=== PATIENT | male | born 1950 | race Caucasian/White ===

== ENCOUNTER 2019-04-08 15:22 | Inpatient (IN) | payer BC, MEDICARE, OTHER ==
[~2019-04-08] VITALS: Ht 172.7 cm; Wt 82.6 kg
[~2019-04-08 15:22] MED LIST: AMLODIPINE-BEN1 EAC5 PO; ASPIRIN EC81 MG PO; CELEBREX200 MG PO; CRESTOR20 MG PO; METFORMIN HCL500 MG PO; NORCO 7.5-3251 EACH PO; OMEPRAZOLE40 MG PO; PERCOCET 2.5-31 EACH PO; PLAVIX75 MG PO; TRILIPIX135 MG PO
--- OUTSIDE RECORDS SUMMARY | 2019-04-08 15:26 | XMS REPORT ---
Author Author [facility] Address Unknown Phone Unavailable Care Team Providers Care Bellperson Name Role Phone Unavailable Unavailable Payers Payer Name Policy Type Policy Number Effective Date Expiration Date Problems This patient has no known problems. Allergies, Adverse Reactions, Alerts Allergy Name Allergy Type Status Severity Reaction(s) Onset Date Inactive Date Treating Clinician Comments Penicillins DA Active MO 2015-01-25 00:00:00 naproxen DA Active MO 2015-01-25 00:00:00 tetracycline DA Active MO 2015-01-25 00:00:00 Medications This patient has no known medications. Results Test Description Test Time Test Comments Text Results Atomic Results Result Comments - CT LD LUNG CA SCREENING 2018-12-19 15:35:00 Name: ASHLI DANIELLE JR [facility] : 1950 Age/S: 68 / M [address] [facility] Unit #: [id number] Loc: [place] [address] Phys: Joseph Fong DO Acct: [id number] Dis Date: Status: REG CLI PHONE #: [phone] Exam Date: 12/19/2018 1422 FAX #: [phone] Reason: SMOKER EXAMS: CPT CODE: [id number] CT LD LUNG CA SCREENING G0297 EXAM: Screening CT chest without contrast (low dose) LOCATION: [facility] INDICATION: Lung cancer screening TECHNIQUE: Axial 0.63 mm images of the chest were obtained using low-dose CT technique, with sagittal and coronal reformats. COMPARISON: 02/12/2015 DISCUSSION: RISK FACTORS: Age: 68 years Smokin pack 55 years Currently smoking: Yes Last smoked: Current smoker History of cancer: None NODULES: None Additional findings: Lungs: Minimal atelectasis of the left base. Previously seen groundglass opacity of the lungs has resolved. Previously seen pleural fusions also resolved Mediastinum: Mild calcification of the coronary artery (LAD, circumflex, and RCA) Lymph nodes: Nonspecific subcentimeter nodes in the mediastinum Osseous structures/soft tissues: Unremarkable Upper abdomen: Unremarkable IMPRESSION: Lung-Rads Category 1 RECOMMENDATION: (Based on Lung-Rads category) FOR INTERNAL CODING PURPOSES ONLY RESULT CODE: L1 FOLLOW UP: L12 at 9105 Reported and signed by: Anjum Fry M.D. PAGE 1 Signed Report (CONTINUED) Name: ASHLI DANIELLE JR [facility] : 1950 Age/S: 68 / M [address] [facility] Unit #: [id number] Loc: [facility] [place] [address] Phys: Joseph Fong DO Acct: [id number] Dis Date: Status: REG CLI PHONE #: [phone] Exam Date: 12/19/2018 1422 FAX #: [phone] Reason: SMOKER EXAMS: CPT CODE: [id number] CT LD LUNG CA SCREENING G0297 <Continued> CC: Joseph Fong Technologist:Nathalie James RT(R),CT CTDI: DLP: Trnscb Date/Time: 12/19/2018 (1535) [email or web address] Orig Print D/T: S: 12/19/2018 (2444) PAGE 2 Signed Report
[2019-04-08] MEDS ORDERED: HYDROCODONE/APAP 5MG-325MG TAB PO ONE (16:30)
--- NOTE | 2019-04-08 18:28 | Diagnostic Imaging Report ---
HIP RIGHT 2-3 VW (+/- PELVIS) - 3 views HISTORY: Fall, rule out fracture COMPARISON: None available. FINDINGS: Bones: No acute displaced fracture. Osseous alignment is within normal limits. Joints: Degenerative changes noted. Soft tissues: The soft tissues appear unremarkable. IMPRESSION: No acute fracture. Signed by: Jerome Bazzi MD on 04/08/2019 6:25 PM
--- NOTE | 2019-04-08 18:45 | NUR ---
AIDAN Barba AT BEDSIDE UPDATING PATIENT ON NEED FOR ADMISSION AND MRI ON WEDNESDAY
--- NOTE | 2019-04-08 19:00 | Diagnostic Imaging Report ---
EXAMINATION: CHEST SINGLE (PORTABLE) INDICATION: FALL COMPARISON: None FINDINGS: AP view TUBES and LINES: None. LUNGS: Lungs are well inflated. There is no evidence of pneumonia or pulmonary edema. PLEURA: No pleural effusion or pneumothorax. HEART AND MEDIASTINUM: The cardiomediastinal silhouette is unremarkable. BONES AND SOFT TISSUES: No acute osseous lesion. Soft tissues are unremarkable. UPPER ABDOMEN: No free air under the diaphragm. IMPRESSION: No displaced fracture noted. Signed by: Jerome Bazzi MD on 04/08/2019 6:57 PM
[2019-04-08 19:11] LABS: BASOPHILS # (AUTO) 0.1 (0.0-0.1); BASOPHILS % 0.4 % (0.0-1.0); EOSINOPHILS # (AUTO) 0.3 (0.0-0.4); EOSINOPHILS % 2.3 % (0.0-6.0); HEMATOCRIT 49.4 % (38.2-49.6); HEMOGLOBIN 17.5 g/dL (14.0-18.0); LYMPHOCYTES # (AUTO) 1.5 (1.0-3.2); LYMPHOCYTES % 12.7 % (18.0-39.1); MEAN CORPUSCULAR HEMOGLOBIN 32.2 pg (28-32); MEAN CORPUSCULAR HGB CONC 35.4 g/dL (31-35); MONOCYTES % 7.9 % (4.4-11.3); NEUTROPHILS # (AUTO) 9.1 (2.1-6.9); NEUTROPHILS % 76.2 % (38.7-80.0); PLATELET COUNT 133 x10e3/uL (140-360); RED BLOOD COUNT 5.43 x10e6/uL (4.3-5.7); RED CELL DISTRIBUTION WIDTH 12.8 % (11.7-14.4)
[2019-04-08 19:23] LABS: INR 0.93
[2019-04-08 19:24] LABS: PARTIAL THROMBOPLASTIN TIME 31.2 seconds (23.8-35.5)
[2019-04-08] MEDS ORDERED: DEXTROSE 50% SYRINGE 50 ML IV PRN (19:30)
[2019-04-08] MEDS ORDERED: ONDANSETRON HCL INJ 2MG/ML 2ML 2 MG/ML VIAL IV PRN (19:30)
[2019-04-08] MEDS ORDERED: SODIUM CHLORIDE 0.9% 1000ML 1,000 ML IV ONE (19:30)
[2019-04-08 19:32] LABS: ALANINE AMINOTRANSFERASE 23 IU/L (0-55); ALBUMIN 3.9 g/dL (3.5-5.0); ALBUMIN/GLOBULIN RATIO 1.4 (0.8-2.0); ALKALINE PHOSPHATASE 60 IU/L (40-150); ANION GAP 12.2 mmol/L (8-16); BLOOD UREA NITROGEN 16 mg/dL (7-26); BUN/CREATININE RATIO 23 (6-25); CALCIUM 9.5 mg/dL (8.4-10.2); CARBON DIOXIDE 29 mmol/L (22-29); CHLORIDE 103 mmol/L (98-107); CREATINE KINASE 73 IU/L (30-200); CREATININE, SERUM 0.71 mg/dL (0.72-1.25); EST GLOMERULAR FILTRATION RATE > 60 ML/MIN (60-); GLUCOSE 83 mg/dL (74-118); MAGNESIUM 1.7 MG/DL (1.3-2.1); POTASSIUM 4.2 mmol/L (3.5-5.1); SODIUM 140 mmol/L (136-145)
[2019-04-08] MEDS: ALBUTEROL SULF 0.083% NEB SOLN 3 ML NEB NEB PRN (19:40)
[2019-04-08] MEDS ORDERED: ENOXAPARIN SOD INJ 40 MG/0.4 ML SYR SC ONE (20:00)
[2019-04-08 20:15] VITALS: BP 168/85
[2019-04-08] MEDS ORDERED: MORPHINE SULFATE 2 MG/ML SYR 1ML IV STA (20:51)
--- NOTE | 2019-04-08 20:51 | NUR ---
Spoke to Rhonda Alvarez NP regarding patient pain med and home meds. New orders received. See EMR for list of orders.
[2019-04-08] MEDS ORDERED: HYDROXYCHLOROQ200 MG PO (20:55)
[2019-04-08] MEDS ORDERED: METOPROLOL TART25 MG PO (20:55)
[2019-04-08] MEDS ORDERED: VITAMIN C1000 MG PO (20:58)
[2019-04-08] MEDS ORDERED: TRAZODONE HCL50 MG PO (20:58)
[2019-04-08] MEDS ORDERED: SIMVASTATIN40 MG PO (20:58)
[2019-04-08] MEDS: INSULIN LISPRO 100 UNIT/1 ML 3ML VIAL SQ SCH (21:00)
[2019-04-08 21:07] VITALS: BP 168/85
--- NOTE | 2019-04-08 22:00 | NUR ---
Informed Rhonda ZAPIEN that morphine is helping the pain. New order received for morphine 2mg iv q4h prn.
[2019-04-08] MEDS ORDERED: COMBIVENT RESPIM4 GM IH (22:02)
[2019-04-08] MEDS ORDERED: MAGNESIUM OXID400 MG PO (22:02)
[2019-04-08] MEDS ORDERED: METOPROLOL TARTRATE 25 MG TAB PO SCH (22:15)
[2019-04-08] MEDS ORDERED: IPRATROPIUM/ALBUTEROL SULFATE 4 GM INH INH PRN (22:15)
[2019-04-08] MEDS ORDERED: BENAZEPRIL PO (22:17)
[2019-04-08] MEDS ORDERED: AMLODIPIN PO (22:17)
--- NOTE | 2019-04-08 23:01 | NUR ---
Call received from radiologist Guido Zabala regarding CT scan result of non displaced femoral neck fracture. Notified Rhonda Alvarez NP at this time. New order received to consult Dr. My Alvarez and to call him once full CT scan report is available.
--- NOTE | 2019-04-08 23:14 | Diagnostic Imaging Report ---
EXAM: CT Pelvis WITHOUT contrast CT Right hip without contrast INDICATION: Trauma, pain COMPARISON: Right hip radiograph 04/08/2019. TECHNIQUE: Pelvis were scanned utilizing a multidetector helical scanner from the iliac crest to the pubic symphysis without administration of IV contrast. Coronal and sagittal reformations were obtained. Routine protocol was performed. IV CONTRAST: None ORAL CONTRAST: None COMPLICATIONS: None RADIATION DOSE: Total DLP: 302 mGy*cm Estimated effective dose: (DLP x 0.015 x size factor) mSv CTDIvol has been reviewed. It is below the limits set by the Radiation Protocol Committee (RPC). Dose modulation, iterative reconstruction, and/or weight based adjustment of the mA/kV was utilized to reduce the radiation dose to as low as reasonably achievable. FINDINGS: LINES and TUBES: None. Partially visualized 2.8 cm right renal cyst. GI TRACT: No abnormal distention, wall thickening, or evidence of bowel obstruction. Moderate colonic stool burden. Colonic diverticuli without diverticulitis. Appendix is normal. PELVIC ORGANS/BLADDER: Unremarkable. LYMPH NODES: No lymphadenopathy. VESSELS: There is mild atherosclerotic disease in the aorta and major arterial branches. PERITONEUM / RETROPERITONEUM: No free air or fluid. BONES/joints: Irregular curvilinear sclerosis to the right femoral neck where there is a subtle cortical step-off along the lateral aspect of the right femoral cervical neck (series 501 image 29, series 104 image 50. Small right hip joint effusion (series 3 image 82). There is L5-S1 laminectomies and intact fixation hardware. Degenerative changes in the spine and hips. SOFT TISSUES: Subcutaneous edema/contusion overlying the right greater trochanter. IMPRESSION: 1. Findings compatible with nondisplaced right femoral neck transcervical/subcapital fracture. 2. Subcutaneous edema/contusion overlying the right greater trochanter. 3. Colonic diverticulosis without diverticulitis. 4. Moderate colonic stool burden, correlate for constipation. Findings discussed with patient's nurse Mr. Dueñas at 10:50 PM on 04/08/[address] Zabala via telephone. Signed by: Freedom Zabala DO on 04/08/2019 11:11 PM
[2019-04-08] MEDS: SIMVASTATIN 40 MG TAB PO SCH (23:30)
[2019-04-08] MEDS: HYDROXYCHLOROQUINE SULFATE 200 MG TAB PO SCH (23:30)
[2019-04-08] MEDS: TRAZODONE HCL 50 MG TAB PO SCH (23:30)
--- NOTE | 2019-04-08 23:52 | NUR ---
Spoke to Dr. My Alvarez at this time regarding consult and made him aware of the CT result. No new orders. said he will see the patient tomorrow.
[2019-04-09] VITALS (9 sets, daily range): BP systolic 113–158; BP diastolic 59–86
[2019-04-09] MEDS: MORPHINE SULFATE 2 MG/ML SYR 1ML IV PRN ×5 (04:23→21:35)
[2019-04-09] MEDS: ALBUTEROL SULF 0.083% NEB SOLN 3 ML NEB NEB PRN (04:42)
[2019-04-09 05:34] LABS: BASOPHILS # (AUTO) 0.1 (0.0-0.1); BASOPHILS % 0.8 % (0.0-1.0); EOSINOPHILS # (AUTO) 0.4 (0.0-0.4); EOSINOPHILS % 4.7 % (0.0-6.0); HEMATOCRIT 46.1 % (38.2-49.6); HEMOGLOBIN 15.9 g/dL (14.0-18.0); LYMPHOCYTES # (AUTO) 1.4 (1.0-3.2); LYMPHOCYTES % 15.7 % (18.0-39.1); MEAN CORPUSCULAR HGB CONC 34.5 g/dL (31-35); MEAN CORPUSCULAR VOLUME 92.8 fL (81-99); MONOCYTES # (AUTO) 0.9 (0.2-0.8); MONOCYTES % 9.5 % (4.4-11.3); NEUTROPHILS # (AUTO) 6.3 (2.1-6.9); NEUTROPHILS % 68.8 % (38.7-80.0); PLATELET COUNT 134 x10e3/uL (140-360); RED BLOOD COUNT 4.97 x10e6/uL (4.3-5.7); RED CELL DISTRIBUTION WIDTH 12.8 % (11.7-14.4)
[2019-04-09] MEDS: INSULIN LISPRO 100 UNIT/1 ML 3ML VIAL SQ SCH ×4 (07:30→20:38)
[2019-04-09] MEDS: METFORMIN HCL 500 MG TAB PO SCH ×2 (08:48→17:12)
[2019-04-09] MEDS: METOPROLOL TARTRATE 25 MG TAB PO SCH ×2 (08:49→22:30)
[2019-04-09] MEDS: AMLODIPINE BESYLATE 10 MG TAB PO SCH (08:49)
[2019-04-09] MEDS: ASCORBIC ACID 500 MG TAB PO SCH ×2 (08:49→17:12)
[2019-04-09] MEDS: PANTOPRAZOLE SOD 40 MG TABEC PO SCH (08:49)
[2019-04-09] MEDS: BENAZEPRIL HCL 10 MG TAB PO SCH (08:49)
[2019-04-09] MEDS ORDERED: BENAZEPRIL PO SCH (09:00)
[2019-04-09] MEDS ORDERED: AMLODIPINE PO SCH (09:00)
[2019-04-09 09:02] LABS: ALANINE AMINOTRANSFERASE 17 IU/L (0-55); ALBUMIN 3.3 g/dL (3.5-5.0); ALBUMIN/GLOBULIN RATIO 1.3 (0.8-2.0); ALKALINE PHOSPHATASE 48 IU/L (40-150); ANION GAP 11.9 mmol/L (8-16); BLOOD UREA NITROGEN 15 mg/dL (7-26); BUN/CREATININE RATIO 20 (6-25); CARBON DIOXIDE 29 mmol/L (22-29); CHLORIDE 103 mmol/L (98-107); CREATININE, SERUM 0.74 mg/dL (0.72-1.25); EST GLOMERULAR FILTRATION RATE > 60 ML/MIN (60-); GLUCOSE 138 mg/dL (74-118); POTASSIUM 3.9 mmol/L (3.5-5.1); SODIUM 140 mmol/L (136-145)
[2019-04-09 09:09] LABS: CREATINE KINASE MB 1.5 ng/mL (0-5.0)
[2019-04-09 13:16] LABS: CREATINE KINASE MB 1.6 ng/mL (0-5.0)
[2019-04-09] MEDS: ALBUTEROL/IPRATROPIUM 3 ML NEB NEB PRN (15:15)
[2019-04-09] MEDS ORDERED: ENOXAPARIN SOD INJ 40 MG/0.4 ML SYR SC SCH (17:00)
--- NOTE | 2019-04-09 17:25 | NUR ---
Spoke with MD Wrihgt (Ortho), stated he will be in to see pt this evening.
[2019-04-09] MEDS ORDERED: HEPARIN SOD (PORCINE) 5,000 UNIT/ML VIAL SC ONE (19:00)
[2019-04-09 19:26] LABS: BASOPHILS # (AUTO) 0.1 (0.0-0.1); BASOPHILS % 0.6 % (0.0-1.0); EOSINOPHILS # (AUTO) 0.5 (0.0-0.4); EOSINOPHILS % 4.3 % (0.0-6.0); HEMATOCRIT 47.6 % (38.2-49.6); HEMOGLOBIN 15.8 g/dL (14.0-18.0); LYMPHOCYTES # (AUTO) 1.6 (1.0-3.2); MEAN CORPUSCULAR HEMOGLOBIN 31.5 pg (28-32); MEAN CORPUSCULAR HGB CONC 33.2 g/dL (31-35); MONOCYTES % 8.9 % (4.4-11.3); NEUTROPHILS # (AUTO) 7.6 (2.1-6.9); NEUTROPHILS % 70.6 % (38.7-80.0); PLATELET COUNT 124 x10e3/uL (140-360); RED BLOOD COUNT 5.01 x10e6/uL (4.3-5.7)
[2019-04-09 19:38] LABS: INR 0.9; PROTHROMBIN TIME 12.6 seconds (11.9-14.5)
[2019-04-09 19:39] LABS: PARTIAL THROMBOPLASTIN TIME 33.7 seconds (23.8-35.5)
[2019-04-09 19:44] LABS: BLOOD UREA NITROGEN 18 mg/dL (7-26); BUN/CREATININE RATIO 23 (6-25); CALCIUM 8.8 mg/dL (8.4-10.2); CARBON DIOXIDE 26 mmol/L (22-29); CHLORIDE 103 mmol/L (98-107); CREATININE, SERUM 0.78 mg/dL (0.72-1.25); EST GLOMERULAR FILTRATION RATE > 60 ML/MIN (60-); GLUCOSE 119 mg/dL (74-118); SODIUM 139 mmol/L (136-145)
--- NOTE | 2019-04-09 21:26 | NUR ---
ORTHOPEDIC CONSULTATION 68 year old community ambulating male without assistive device presents to the ED after a mechanical fall with complaints of right hip pain and right upper arm pain. Denies numbness, paresthesias or loss of distal motor function. Pain localized. PMdHx: HTN, DM, ID, HLD SurgHx: PCI, Right Ankle Sx, Spine Sx Allergies: Penicillin, Naproxen, Tetracycline SocHx: Heavy Tobacco, Negative EtOH, Negative Drugs FamHx: Non-contributory VS T 99.6 HR 63 RR 18 BP 117/80 O2 94% Right Lower Leg - no open lesions or sores, no gross deformity TTP of greater trochanter Pain with PROM Unable to straight leg raise Pain with log roll and heel strike Motor: + EHL, FHL, TA, G/S Sensation grossly intact to light touch Pulses + DP, Post tib Compartments soft Negative calf tenderness Right Upper Extremity: no open lesions or sores TTP of triceps Able to flex, extend, supinate and pronate against resistance Pain with resisted tricep extension Motor: + AIN, PIN, Radial, Median, Ulnar Sensation grossly intact to light touch Pulses + Radial, good capillary refill Compartments soft CT: Non-displaced right femoral neck fracture Xrays: Valgus impacted femoral neck fracture 68 year old Male with Valgus Impacted Right Femoral Neck Fracture Plan for Right Hip Closed Reduction, Percutaneous Pinning NPO except meds after midnight IVF while NPO Hold chemo DVT prophylaxis after midnight Bedrest Follow up labs, EKG, Chest Xrays and Right Humerus Xray Analgesics PRN DO [facility]
--- NOTE | 2019-04-09 22:06 | Diagnostic Imaging Report ---
X-ray right humerus 2 views HISTORY: Pain. COMPARISON: None available. FINDINGS: Bones: No acute displaced fracture. Osseous alignment is within normal limits. Joints: Degenerative changes in the shoulder and elbow. Soft tissues: The soft tissues appear unremarkable. IMPRESSION: No acute radiographic abnormality. Degenerative changes in the shoulder and elbow. Signed by: Freedom Zabala DO on 04/09/2019 10:03 PM
[2019-04-09] MEDS: SIMVASTATIN 40 MG TAB PO SCH (22:30)
[2019-04-09] MEDS: HYDROXYCHLOROQUINE SULFATE 200 MG TAB PO SCH (22:30)
[2019-04-09] MEDS: TRAZODONE HCL 50 MG TAB PO SCH (22:30)
[2019-04-10] VITALS (8 sets, daily range): BP systolic 97–141; BP diastolic 58–74
[2019-04-10] MEDS: MORPHINE SULFATE 2 MG/ML SYR 1ML IV PRN ×4 (01:35→21:15)
[2019-04-10 06:15] LABS: BASOPHILS # (AUTO) 0.1 (0.0-0.1); BASOPHILS % 0.7 % (0.0-1.0); EOSINOPHILS # (AUTO) 0.5 (0.0-0.4); EOSINOPHILS % 4.9 % (0.0-6.0); HEMOGLOBIN 15.3 g/dL (14.0-18.0); LYMPHOCYTES # (AUTO) 1.5 (1.0-3.2); LYMPHOCYTES % 16.3 % (18.0-39.1); MEAN CORPUSCULAR VOLUME 94.1 fL (81-99); MONOCYTES % 10.2 % (4.4-11.3); NEUTROPHILS # (AUTO) 6.3 (2.1-6.9); NEUTROPHILS % 67.3 % (38.7-80.0); PLATELET COUNT 116 x10e3/uL (140-360); RED BLOOD COUNT 4.78 x10e6/uL (4.3-5.7); RED CELL DISTRIBUTION WIDTH 12.9 % (11.7-14.4)
[2019-04-10 06:52] LABS: BLOOD UREA NITROGEN 18 mg/dL (7-26); BUN/CREATININE RATIO 24 (6-25); CALCIUM 8.8 mg/dL (8.4-10.2); CHLORIDE 103 mmol/L (98-107); CREATININE, SERUM 0.75 mg/dL (0.72-1.25); EST GLOMERULAR FILTRATION RATE > 60 ML/MIN (60-); GLUCOSE 82 mg/dL (74-118); POTASSIUM 4.3 mmol/L (3.5-5.1); SODIUM 139 mmol/L (136-145)
--- NOTE | 2019-04-10 07:00 | NUR ---
RECEIVED PATIENT AWAKE RESTING IN BED NO S/S OF DISTRESS. BED LOW, WHEELS LOCKED, SIDE RAILS X2. CALL LIGHT IN REACH WILL CONTINUE TO MONITOR PATIENT.
[2019-04-10] MEDS ORDERED: ACETAMINOPHEN 325 MG TAB PO PRN (07:15)
[2019-04-10] MEDS ORDERED: HYDRALAZINE HCL 20 MG/ML VIAL IV PRN (07:15)
[2019-04-10] MEDS ORDERED: MELATONIN 5 MG TABLET PO PRN (07:15)
[2019-04-10] MEDS: INSULIN LISPRO 100 UNIT/1 ML 3ML VIAL SQ SCH ×4 (07:30→21:00)
[2019-04-10] MEDS: METFORMIN HCL 500 MG TAB PO SCH ×2 (07:36→17:34)
--- NOTE | 2019-04-10 07:57 | NUR ---
PATIENT LEFT TO OR AT THIS TIME IN STABLE CONDITION.
[2019-04-10 07:58] LABS: ANION GAP 14.3 mmol/L (8-16); CARBON DIOXIDE 28 mmol/L (22-29)
[2019-04-10] MEDS: BENAZEPRIL HCL 10 MG TAB PO SCH (08:00)
[2019-04-10] MEDS: PANTOPRAZOLE SOD 40 MG TABEC PO SCH (08:00)
[2019-04-10] MEDS: ASCORBIC ACID 500 MG TAB PO SCH ×2 (08:00→17:34)
[2019-04-10] MEDS: AMLODIPINE BESYLATE 10 MG TAB PO SCH (08:00)
[2019-04-10] MEDS: METOPROLOL TARTRATE 25 MG TAB PO SCH ×2 (08:00→21:23)
[2019-04-10] MEDS ORDERED: ALBUTEROL SULF 0.083% NEB SOLN 3 ML NEB ONE (08:33)
[2019-04-10] MEDS ORDERED: CLINDAMYCIN PHOS 900MG/ 50ML 50 ML IV ONE (08:55)
[2019-04-10] MEDS ORDERED: BUPIVACAINE HCL 0.5% INJ 30 ML VIAL INJ ONE (09:25)
--- NOTE | 2019-04-10 10:39 | NUR ---
RECEIVED REPORT FROM RECOVERY WAITING FOR PATIENT TO ARRIVE TO FLOOR AT THIS TIME.
--- NOTE | 2019-04-10 10:45 | NUR ---
PATIENT BACK FROM SURGERY AT THIS TIME. VS- 96.4 TEMP, 97/58 BP, 52 HR, 16 RR, 94% 3LNC. RIGHT HIP MICROFOAM DRESSING CLEAN, DRY, AND INTACT. BILATERAL FOOT PUMPS IN PLACE. NO PAIN AT THIS TIME. CALL LIGHT IN REACH WILL CONTINUE TO MONITOR PATIENT.
--- NOTE | 2019-04-10 11:35 | Diagnostic Imaging Report ---
EXAMINATION: PELVIS AP 1-2 VIEWS INDICATION: Postoperative COMPARISON: None FINDINGS: Portable AP radiograph of the pelvis demonstrates postoperative findings of open reduction internal fixation of right femoral neck fracture with 3 partially threaded screws. Alignment appears anatomic. No unexpected fracture. IMPRESSION: Anatomic alignment status post ORIF of right femoral neck fracture. Signed by: Kenzie Pruitt MD on 04/10/2019 11:31 AM
[2019-04-10] MEDS: HYDROCODONE/APAP 5MG-325MG TAB PO PRN (13:32)
--- NOTE | 2019-04-10 13:54 | NUR ---
WOUND CARE CONSULT 68YO MALE S/P FALL WITH SKIN TEARS SEJAL 19 CONSERVATIVE PUP ON VISCO MATTRESS SKIN ASSESSMENT COMPLETE PATIENT PRESENTS WITH 5WLM4RKB.1CM SKIN TEAR OPENING WOUND BED PINK AND HAS SMALL AMOUNT OF SEROSANGUINEOUS DRAINAGE NOTED IBRAHIMA SKIN BRUISED RECOMMENDATIONS :NURSING TO APPLY PURACOL COLLAGEN DRESSING TO PARTIAL THICKNESS WOUND BED COVER WITH SLIGHTLY SALINE DAMPENED 4X4 WITH DRY 4X4 ON TOP SECURE WITH HYPAFIX TAPE Addendum: 04/10/19 at 1403 by Aravind Ty RN Amended: Links added.
[2019-04-10] MEDS ORDERED: SODIUM CHLORIDE 0.9% 250ML 250 ML ONE (14:25)
[2019-04-10] MEDS: CLINDAMYCIN PHOS 900MG/ 50ML 50 ML IV SCH ×2 (14:27→22:10)
--- NOTE | 2019-04-10 16:18 | NUR ---
Order received for home health. Spoke to patient and he chooses [facility] [phone]. Clinicals faxed to [phone]. Fax conf received. Order received to dispense walker to patient. Patient needing to ambulate with walker per PT. Met with patient and he signed the green sheet for the walker. Walker adjusted to patient's height. Sheet placed on chart for Dr. Wright to sign.
[2019-04-10] MEDS ORDERED: ENOXAPARIN SOD INJ 40 MG/0.4 ML SYR SC SCH (18:00)
[2019-04-10] MEDS ORDERED: ONDANSETRON HCL INJ 2MG/ML 2ML 2 MG/ML VIAL ONE (18:47)
[2019-04-10] MEDS ORDERED: KETOROLAC TROMETHAMINE 30 MG/ML VIAL ONE (18:47)
[2019-04-10] MEDS ORDERED: LIDOCAINE HCL 2% LOCAL INJ 5 ML SDV VIAL INJ ONE (18:47)
[2019-04-10] MEDS ORDERED: DEXAMETHASONE SOD PHOS INJ 4 MG/ML VIAL ONE (18:47)
[2019-04-10] MEDS ORDERED: PROPOFOL IV EMULSION 10 MG/ML 20 ML VIAL ONE (18:47)
[2019-04-10] MEDS ORDERED: SEVOFLURANE INHAL SOLN 250 ML PEN BTL ONE (18:47)
--- NOTE | 2019-04-10 19:00 | NUR ---
RECEIVED PATIENT IN BEDSIDE REPORT. NO PAIN REPORTED. NO S&S OF DISTRESS NOTED. BED LOCKED IN LOWEST POSITION, SIDE RAILS UPX2, CALL LIGHT IN REACH.
[2019-04-10] MEDS ORDERED: FENTANYL CITRATE/PF 100MCG/2 ML INJ ONE (19:28)
[2019-04-10] MEDS ORDERED: MIDAZOLAM HCL 2 MG/2 ML VIAL ONE (19:28)
[2019-04-10] MEDS: TRAZODONE HCL 50 MG TAB PO SCH (21:23)
[2019-04-10] MEDS: HYDROXYCHLOROQUINE SULFATE 200 MG TAB PO SCH (21:23)
[2019-04-10] MEDS: SIMVASTATIN 40 MG TAB PO SCH (21:23)
[2019-04-11] VITALS: BP 127/73
--- NOTE | 2019-04-11 00:39 | NUR ---
Operative Note - Orthopedic Surgery PREOPERATIVE DIAGNOSES: Right Valgus Impacted Femoral Neck Fracture POSTOPERATIVE DIAGNOSES: Right Valgus Impacted Femoral Neck Fracture OPERATION PERFORMED: Closed Reduction, Percutaneous Pinning Right Hip, Flouroscopic Interpretation SURGEON: My Alvarez DO ANESTHESIA: General. EBL: 20cc COMPLICATIONS: None IMPLANTS: Knox Asnis III Cannulated Screws 6.5 x 90mm TL 20 mm, 6.5 x 90mm TL 20 mm, 8.0 x 90 mm TL 25mm DESCRIPTION OF OPERATION: The patient was taken to the operating room and placed under general anesthesia. The right and left lower extremity had all bony prominences well padded and secured. SCD was placed on the left lower leg. Preoperative Clindamycin antibiotics were given. The patients right lower extremities were sterilely prepped and draped in the usual fashion. A time-out was performed to identify the correct extremity. The righthip was visualized under flouroscopy and the hip was adducted to improve the position of the fracture and to allow for pinning. Next and incision was made lateral to the greater trochanter. A guide pin was introduced through the inferior portion neck and head under flouroscopic guidance and deemed to be in adequate position. Two other guide pins were inserted under similar fashion along the superoanterior and superoposterior portion of the neck and head. The intraosseous length of the pin was measured and three Asnis III Partially Threaded Cannulated Screws were introduced into the neck and head. The anterosuperior screw was 6.5 x 90mm TL 20 mm, posterosuperior screw was 6.5 x 90mmmm TL and the inferior screw was 8.0 x 90 mm TL 25mm. The guide pins were removed and final imaging was taken and interpreted to be in adequate position. The incisions were thoroughly irrigated, and the fascia was closed with 0 vicryl, and the subcutaneous tissue was closed with 2-0 vicryl. 3-0 Monocryle were placed to close the skin and the skin was then cleaned. An Aquacel dressing was placed. The patient was transferred to back to the general medical floor under stable condition.
[2019-04-11] MEDS: MORPHINE SULFATE 2 MG/ML SYR 1ML IV PRN (01:30)
[2019-04-11 03:17] LABS: BASOPHILS % 0.2 % (0.0-1.0); EOSINOPHILS % 0.2 % (0.0-6.0); HEMATOCRIT 41.7 % (38.2-49.6); HEMOGLOBIN 14.6 g/dL (14.0-18.0); LYMPHOCYTES # (AUTO) 0.7 (1.0-3.2); LYMPHOCYTES % 7.6 % (18.0-39.1); MEAN CORPUSCULAR HEMOGLOBIN 32.3 pg (28-32); MEAN CORPUSCULAR VOLUME 92.3 fL (81-99); MONOCYTES # (AUTO) 0.7 (0.2-0.8); MONOCYTES % 8.1 % (4.4-11.3); NEUTROPHILS # (AUTO) 7.5 (2.1-6.9); NEUTROPHILS % 83.2 % (38.7-80.0); PLATELET COUNT 121 x10e3/uL (140-360); RED BLOOD COUNT 4.52 x10e6/uL (4.3-5.7); RED CELL DISTRIBUTION WIDTH 12.4 % (11.7-14.4)
[2019-04-11 03:30] LABS: ANION GAP 11.3 mmol/L (8-16); BLOOD UREA NITROGEN 26 mg/dL (7-26); BUN/CREATININE RATIO 35 (6-25); CALCIUM 8.4 mg/dL (8.4-10.2); CARBON DIOXIDE 26 mmol/L (22-29); CHLORIDE 103 mmol/L (98-107); CREATININE, SERUM 0.75 mg/dL (0.72-1.25); EST GLOMERULAR FILTRATION RATE > 60 ML/MIN (60-); GLUCOSE 158 mg/dL (74-118); POTASSIUM 4.3 mmol/L (3.5-5.1); SODIUM 136 mmol/L (136-145)
[2019-04-11 04:00] VITALS: BP 132/77
[2019-04-11] MEDS ORDERED: TYLENOL WITH C1 EACH PO (04:14)
[2019-04-11] MEDS: HYDROCODONE/APAP 5MG-325MG TAB PO PRN ×2 (04:48→11:34)
[2019-04-11] MEDS: ALBUTEROL/IPRATROPIUM 3 ML NEB NEB PRN (04:57)
[2019-04-11] MEDS: CLINDAMYCIN PHOS 900MG/ 50ML 50 ML IV SCH (06:05)
--- NOTE | 2019-04-11 07:00 | NUR ---
RECEIVED PATIENT AWAKE RESTING IN BED NO S/S OF DISTRESS. BED LOW, WHEELS LOCKED, SIDE RAILS X2. CALL LIGHT IN REACH WILL CONTINUE TO MONITOR PATIENT.
--- NOTE | 2019-04-11 07:17 | NUR ---
ORTHOPEDIC PROGRESS NOTE Patient seen & examined resting comfortably at bedside. No acute events overnight. Feeling much better T 96.9 HR 61 RR 18 BP 132/77 O2 100% Right hip Dressing clean, dry and intact Motor: + EHL, FHL, TA, G/S Sensation grossly intact Pulses + DP, Post tib Compartments soft Negative calf tenderness Hgb/Hct 14.6/41.7 68 yo M s/p Right Hip CRPP POD#1 Analgesics DVT Prophylaxis PT - WBAT Patient doing very well, orthopedically stable for discharge Follow up in office in 2 weeks Keep dressing clean, dry and intact My Alvarez, DO [facility].
--- NOTE | 2019-04-11 07:22 | NUR ---
ORDER FROM [facility] TO [facility].
[2019-04-11] MEDS: INSULIN LISPRO 100 UNIT/1 ML 3ML VIAL SQ SCH ×2 (07:30→11:30)
[2019-04-11] MEDS: METOPROLOL TARTRATE 25 MG TAB PO SCH (08:27)
--- NOTE | 2019-04-11 08:41 | NUR ---
HOME HEALTH DISCHARGE NOTE PATIENT ADDRESS WHERE SERVICE WILL BE RECEIVED: [address], [place] [address] PATIENT CONTACT NUMBER: [phone] NAME OF HOME HEALTH COMPANY:[employer] TELEPHONE/FAX NUMBER OF COMPANY:[phone]; [phone] (fax) SERVICES TO RECEIVE: physical therapy eval and treat, skilled nurse eval and treat ANTICIPATED DATE SERVICES WILL BEGIN: 04/12 Please call the company above if you have not received a call to schedule a home visit within 24 hours of discharge. Addendum: 04/11/19 at 0843 by Donna Nina confirmed with [facility] Addendum: 04/11/19 at 0844 by Donna Nina CM faxed updated physical therapy note
[2019-04-11] MEDS ORDERED: MORPHINE SULFATE 2 MG/ML SYR 1ML IV PRN (08:45)
[2019-04-11] MEDS: ASCORBIC ACID 500 MG TAB PO SCH (08:50)
[2019-04-11] MEDS: PANTOPRAZOLE SOD 40 MG TABEC PO SCH (08:50)
[2019-04-11] MEDS: AMLODIPINE BESYLATE 10 MG TAB PO SCH (08:50)
[2019-04-11] MEDS: METFORMIN HCL 500 MG TAB PO SCH (08:50)
[2019-04-11] MEDS: BENAZEPRIL HCL 10 MG TAB PO SCH (08:50)
[2019-04-11 08:51] VITALS: BP 142/67
--- NOTE | 2019-04-11 10:43 | NUR ---
PATIENT A/O X3, EVEN RESPIRATIONS ON 2LNC. LUNG SOUNDS CLEAR TO AUSCULTATION. RIGHT HIP DRESSING CLEAN DRY AND INTACT. RIGHT AC 20 GAUGE IV SL. PATIENT AMBULATES WITH WALKER AND STANDBY ASSIST. CALL LIGHT IN REACH WILL CONTINUE TO MONITOR PATIENT.
[2019-04-11 11:58] VITALS: BP 139/60
--- NOTE | 2019-04-11 12:07 | NUR ---
REMOVED PATIENTS IV. CATHETER TIP INTACT AND PRESSURE DRESSING APPLIED.
--- NOTE | 2019-04-11 12:40 | NUR ---
PATIENT DISCHARGED FROM FACILITY. PATIENT GATHERED ALL PERSONAL BELONGINGS, DISCHARGE INSTRUCTIONS, AND FOLLOW UP INFORMATION. PATIENT LEFT UNIT IN WHEELCHAIR AND WENT HOME VIA PRIVATE AUTO. NO SIGNS OF DISTRESS WHEN LEAVING FACILITY.
--- NOTE | 2019-04-11 13:10 | NUR ---
spoke with patient, he states [facility] an acute care hospital wants to charge him a 100 a week copay and that is no good since he has a primary, secondary and tertiary policy. Sent new referral now to [facility] [phone],
--- NOTE | 2019-04-13 12:13 | Discharge Summary ---
ADMISSION DIAGNOSES: 1. Right femur fracture, status post fall. 2. Hypertension. 3. Type 2 diabetes. 4. Gastroesophageal reflux disease. DISCHARGE DIAGNOSES: 1. Right femur fracture, status post fall. 2. Hypertension. 3. Type 2 diabetes. 4. Gastroesophageal reflux disease. 5. Right hip pinning. HISTORY: Hypertension, type 2 diabetes, GERD. SURGICAL HISTORY: None. FAMILY HISTORY: None. SOCIAL HISTORY: The patient smokes one pack of cigarettes a day. HOSPITAL COURSE: A 68-year-old male admits status post fall with right femur fracture. Hip x-ray on the right showed no fracture. Chest x-ray was negative. CT of the abdomen and pelvis showed findings compatible with nondisplaced right femoral fracture, femoral fracture neck, transcervical/subcapital fracture. The patient then had a right hip pinning with Dr. Sadler and postop pelvic x-ray showed anatomic alignment, status post ORIF. The patient is feeling much better and will be discharged home with a walker per Surgery recommendation. Vital signs are stable. The patient is afebrile. The patient was given pain medicines and will follow up with primary care and Surgery in 1 to 2 weeks. Dictated by Loly Cervantes NP MD CHERYL Larose/JODY /[id number]
--- NOTE | 2019-04-17 14:00 | NUR ---
received call from [facility] who states home health did not come. Sent clinicals to 4 other companies with her consent. [facility] calls and states they will be able to take patient and also will have no copay. notified [facility] who said thats fine, so they are starting [facility].
== END 2019-04-11 12:40 | disposition home health service (06) | DRG 482 ==
LOC: ER 15:22 → ERHOLD 19:47 → MED/SURG 20:17
PROVIDERS: ADMIT Internal Medicine; ATTEND Internal Medicine
PROC: 0QS634Z Reposition Right Upper Femur with Internal Fixation Device, Percutaneous Approach (ICD-10-PCS; principal; 2019-04-11)
DX: S72.034A Nondisplaced midcervical fracture of right femur, initial encounter for closed fracture (principal); S60.512A Abrasion of left hand, initial encounter; W01.190A Fall on same level from slipping, tripping and stumbling with subsequent striking against furniture, initial encounter; Y93.01 Activity, walking, marching and hiking; Y92.59 Other trade areas as the place of occurrence of the external cause; I10 Essential (primary) hypertension; E11.9 Type 2 diabetes mellitus without complications; I25.2 Old myocardial infarction; E78.5 Hyperlipidemia, unspecified; Z88.6 Allergy status to analgesic agent; Z88.0 Allergy status to penicillin; Z88.8 Allergy status to other drugs, medicaments and biological substances; F17.210 Nicotine dependence, cigarettes, uncomplicated; K21.9 Gastro-esophageal reflux disease without esophagitis; Z79.84 Long term (current) use of oral hypoglycemic drugs; S72.001A Fracture of unspecified part of neck of right femur, initial encounter for closed fracture; S72.011A Unspecified intracapsular fracture of right femur, initial encounter for closed fracture
CPT/HCPCS: 36415; 71045; 72170; 72192; 76000; 80048; 80053; 82550; 82553; 82948; 83735; 84484; 85025; 85610; 85730; 86850; 86900; 93005; 94640; 97139; 99284; C1713; J1100; J1644; J1650; J1885; J2001; J2250; J2270; J2405; J3010; J7030; J7050

== ENCOUNTER 2020-08-22 07:57 | Observation (INO) | payer BC, MEDICARE, OTHER ==
[2020-08-20 15:48] LABS: BASOPHILS # (AUTO) 0.1 (0.0-0.1); BASOPHILS % 0.8 % (0.0-1.0); EOSINOPHILS # (AUTO) 0.4 (0.0-0.4); EOSINOPHILS % 4.1 % (0.0-6.0); HEMATOCRIT 47.1 % (38.2-49.6); HEMOGLOBIN 16.3 g/dL (14.0-18.0); LYMPHOCYTES # (AUTO) 1.8 (1.0-3.2); LYMPHOCYTES % 18.4 % (18.0-39.1); MEAN CORPUSCULAR HEMOGLOBIN 31.1 pg (28-32); MEAN CORPUSCULAR HGB CONC 34.6 g/dL (31-35); MEAN CORPUSCULAR VOLUME 89.9 fL (81-99); MONOCYTES # (AUTO) 0.7 (0.2-0.8); MONOCYTES % 7.7 % (4.4-11.3); NEUTROPHILS # (AUTO) 6.6 (2.1-6.9); NEUTROPHILS % 68.5 % (38.7-80.0); PLATELET COUNT 138 x10e3/uL (140-360); RED BLOOD COUNT 5.24 x10e6/uL (4.3-5.7)
[2020-08-20 16:06] LABS: INR 0.86; PARTIAL THROMBOPLASTIN TIME 27.6 seconds (23.8-35.5); PROTHROMBIN TIME 12.3 seconds (11.9-14.5)
[2020-08-20 16:13] LABS: ANION GAP 14.4 mmol/L (8-16); BLOOD UREA NITROGEN 26 mg/dL (7-26); BUN/CREATININE RATIO 30 (6-25); CALCIUM 8.8 mg/dL (8.4-10.2); CARBON DIOXIDE 29 mmol/L (22-29); CHLORIDE 102 mmol/L (98-107); CREATININE, SERUM 0.87 mg/dL (0.72-1.25); EST GLOMERULAR FILTRATION RATE > 60 ML/MIN (60-); GLUCOSE 88 mg/dL (74-118); POTASSIUM 4.4 mmol/L (3.5-5.1); SODIUM 141 mmol/L (136-145)
[~2020-08-22] VITALS: Ht 172.7 cm; Wt 79.4 kg
[~2020-08-22 07:57] MED LIST changes: +ACETAMINOPHEN 1000 MG/100 ML 100 ML IV ONE; +AMLODIPIN PO; +BENAZEPRIL PO; +CLOPIDOGREL75 MG PO; +COMBIVENT RESPIM4 GM IH; +HYDROXYCHLOROQ200 MG PO; +IBUPROFEN 800MG/ 200ML 200 ML IV ONE; +LIDOCAINE HCL (LTA) 4 ML SOLN ONE; +MAGNESIUM OXID400 MG PO; +METOPROLOL TART25 MG PO; +PROTONIX20 MG PO; +SIMVASTATIN40 MG PO; +TRAZODONE HCL50 MG PO; +TRIAMTERENE-HCTZ1 EA PO; +TYLENOL WITH C1 EACH PO; +VITAMIN C1000 MG PO; +VITAMIN D250 MCG PO
[2020-08-22] MEDS ORDERED: VANCOMYCIN 1GM/NS 250 ML 250 ML ONE (09:18)
[2020-08-22] MEDS ORDERED: LIDOCAINE 1% W/EPINEPHRINE 20 ML VIAL ONE (09:18)
[2020-08-22] MEDS ORDERED: VANCOMYCIN HCL 1 GM VIAL ONE (09:19)
[2020-08-22] MEDS ORDERED: THROMBIN FOR SOLN 5,000 UNIT VIAL ONE (09:19)
[2020-08-22] MEDS ORDERED: PROMETHAZINE HCL (IM) 25 MG/ML VIAL IM PRN (11:15)
[2020-08-22] MEDS ORDERED: ACETAMINOPHEN 325 MG TAB PO PRN (11:15)
[2020-08-22] MEDS ORDERED: ONDANSETRON HCL INJ 2MG/ML 2ML 2 MG/ML VIAL IV PRN (11:15)
[2020-08-22] MEDS ORDERED: IPRATROPIUM/ALBUTEROL SULFATE 4 GM INH INH PRN (11:15)
[2020-08-22] MEDS ORDERED: MORPHINE SULFATE 5 MG/ML VIAL IM PRN (11:15)
[2020-08-22] MEDS ORDERED: MAGNESIUM/ALUMINUM/SIMETHICONE 30 ML UDC PO PRN (11:15)
[2020-08-22] MEDS ORDERED: HYDROCODON-ACE1 EA12 PO (11:16)
[2020-08-22 12:43] VITALS: BP 139/61
[2020-08-22 12:47] VITALS: BP 139/61
[2020-08-22] MEDS: LACTATED RINGER'S 1,000 ML IV SCH ×2 (13:30→21:50)
[2020-08-22] MEDS ORDERED: MIDAZOLAM HCL 2 MG/2 ML VIAL ONE (14:10)
[2020-08-22] MEDS: OXYCODONE/ACETAMINOPHEN 5-325 1 EACH TABLET PO PRN ×2 (14:12→21:29)
[2020-08-22] MEDS: CARISOPRODOL 350 MG TAB PO PRN (14:13)
[2020-08-22 15:49] VITALS: BP 127/67
[2020-08-22] MEDS: ASCORBIC ACID 500 MG TAB PO SCH (16:31)
[2020-08-22] MEDS: MAGNESIUM OXIDE 400 MG TAB PO SCH (16:31)
[2020-08-22] MEDS: METFORMIN HCL 500 MG TAB PO SCH (16:31)
[2020-08-22] MEDS: METOPROLOL TARTRATE 25 MG TAB PO SCH (16:31)
[2020-08-22] MEDS ORDERED: ASCORBIC ACID 500 MG TAB PO SCH (17:00)
[2020-08-22] MEDS ORDERED: SEVOFLURANE INHAL SOLN 250 ML PEN BTL ONE (17:21)
[2020-08-22] MEDS ORDERED: ONDANSETRON HCL INJ 2MG/ML 2ML 2 MG/ML VIAL ONE (17:21)
[2020-08-22] MEDS ORDERED: DEXAMETHASONE SOD PHOS INJ 4 MG/ML VIAL ONE (17:21)
[2020-08-22] MEDS ORDERED: LIDOCAINE HCL 2% LOCAL INJ 5 ML SDV VIAL INJ ONE (17:21)
[2020-08-22] MEDS ORDERED: NEOSTIGMINE 1 MG/ML 10ML VIAL ONE (17:21)
[2020-08-22] MEDS ORDERED: GLYCOPYRROLATE INJ 0.2 MG/ML VIAL ONE (17:21)
[2020-08-22] MEDS ORDERED: ROCURONIUM BROMIDE 10 MG/ML 5ML VIAL IV ONE (17:21)
[2020-08-22] MEDS ORDERED: EPHEDRINE SULFATE INJ 50 MG/ML VIAL ONE (17:21)
[2020-08-22] MEDS ORDERED: PROPOFOL IV EMULSION 10 MG/ML 20 ML VIAL ONE (17:21)
[2020-08-22] MEDS: HYDROMORPHONE 2MG/ML 2 MG/ML ML IV PRN ×2 (18:14→23:23)
[2020-08-22 19:49] VITALS: BP 118/70
[2020-08-22 20:00] VITALS: BP 118/70
[2020-08-22] MEDS ORDERED: HYDROXYCHLOROQUINE SULFATE 200 MG TAB PO SCH (21:00)
[2020-08-22] MEDS ORDERED: ZOLPIDEM TARTRATE 5 MG TAB PO PRN (21:00)
[2020-08-22] MEDS ORDERED: TRAZODONE HCL 50 MG TAB PO SCH (21:00)
[2020-08-22] MEDS ORDERED: SIMVASTATIN 40 MG TAB PO SCH (21:00)
[2020-08-22] MEDS ORDERED: SODIUM CHLORIDE 0.9% 250ML 250 ML ONE (21:07)
[2020-08-22] MEDS: VANCOMYCIN 1GM/NS 250 ML 250 ML IV SCH (21:13)
[2020-08-23] MEDS: HYDROMORPHONE 2MG/ML 2 MG/ML ML IV PRN (04:54)
[2020-08-23] MEDS: LACTATED RINGER'S 1,000 ML IV SCH (06:10)
[2020-08-23 08:00] VITALS: BP 107/60
[2020-08-23] MEDS: METFORMIN HCL 500 MG TAB PO SCH (08:00)
[2020-08-23] MEDS: VANCOMYCIN 1GM/NS 250 ML 250 ML IV SCH (08:30)
[2020-08-23] MEDS: METOPROLOL TARTRATE 25 MG TAB PO SCH (08:47)
[2020-08-23] MEDS: ASCORBIC ACID 500 MG TAB PO SCH (08:47)
[2020-08-23] MEDS: MAGNESIUM OXIDE 400 MG TAB PO SCH (08:49)
[2020-08-23 08:50] VITALS: BP 107/60
[2020-08-23] MEDS ORDERED: ONDANSETRON HCL 4 MG ORAL DISINTEGRATING TAB PO PRN (09:00)
[2020-08-23] MEDS ORDERED: PANTOPRAZOLE SOD 40 MG TABEC PO SCH (09:00)
[2020-08-23] MEDS ORDERED: TRIAMTERENE/HCTZ 37.5-25 MG TAB PO SCH (09:00)
[2020-08-23] MEDS: CARISOPRODOL 350 MG TAB PO PRN (10:32)
[2020-08-23] MEDS: OXYCODONE/ACETAMINOPHEN 5-325 1 EACH TABLET PO PRN (10:32)
== END 2020-08-23 10:53 | disposition home or self-care (01) ==
LOC: OR 07:57 → PACU V 11:14 → MED/SURG 12:46
PROVIDERS: ADMIT Neurological Surgery; ATTEND Neurological Surgery
DX: M48.062 Spinal stenosis, lumbar region with neurogenic claudication (principal); E11.9 Type 2 diabetes mellitus without complications; I10 Essential (primary) hypertension; E78.5 Hyperlipidemia, unspecified; M19.90 Unspecified osteoarthritis, unspecified site; C90.31 Solitary plasmacytoma in remission; F17.210 Nicotine dependence, cigarettes, uncomplicated; Z01.810 Encounter for preprocedural cardiovascular examination; Z01.812 Encounter for preprocedural laboratory examination; Z01.818 Encounter for other preprocedural examination; Z20.822 Contact with and (suspected) exposure to COVID-19; Z88.0 Allergy status to penicillin; Z88.8 Allergy status to other drugs, medicaments and biological substances; J44.9 Chronic obstructive pulmonary disease, unspecified
CPT/HCPCS: 36415 ×3; 63047; 63048; 71046; 72020; 80048; 82948 ×2; 85025; 85610; 85730; 86850; 86900; 88304; 88311; 93005; G0378 ×2; J0131; J1100; J1170 ×2; J2001; J2250; J2405; J2704; J2710; J3370 ×3; J7050; S0164; U0002

== ENCOUNTER 2021-02-27 14:49 | Emergency (ER) | payer MEDICARE, OTHER, BC ==
[~2021-02-27] VITALS: Ht 172.7 cm; Wt 79.4 kg
[~2021-02-27 14:49] MED LIST changes: -ACETAMINOPHEN 1000 MG/100 ML 100 ML IV ONE; +HYDROCODON-ACE1 EA12 PO; -IBUPROFEN 800MG/ 200ML 200 ML IV ONE; -LIDOCAINE HCL (LTA) 4 ML SOLN ONE
[2021-02-27] MEDS ORDERED: ACETAMINOPHEN 325 MG TAB PO ONE (15:30)
== END 2021-02-27 17:08 | disposition home or self-care (01) ==
LOC: ER 15:03
DX: M54.50 Low back pain, unspecified (principal); W01.0XXA Fall on same level from slipping, tripping and stumbling without subsequent striking against object, initial encounter; Y93.01 Activity, walking, marching and hiking; Y92.028 Other place in mobile home as the place of occurrence of the external cause; I10 Essential (primary) hypertension; E11.9 Type 2 diabetes mellitus without complications; J44.9 Chronic obstructive pulmonary disease, unspecified; K21.9 Gastro-esophageal reflux disease without esophagitis; E78.00 Pure hypercholesterolemia, unspecified; Z95.5 Presence of coronary angioplasty implant and graft; F17.210 Nicotine dependence, cigarettes, uncomplicated
CPT/HCPCS: 70450; 72131; 99283

== ENCOUNTER → 2024-11-16 | Outpatient (REF) | payer MEDICARE, OTHER ==
[~2024-11-16] MED LIST changes: +ATORVASTATIN CA40 MG PO; +CEPHALEXIN500 MG PO; +COZAAR25 MG PO; +RAPAFLO8 MG; +SOMA350 MG PO; +TOPROL XL50 MG PO
== END ==
LOC: RAD 09:30
PROVIDERS: ATTEND Internal Medicine Rheumatology
DX: M54.2 Cervicalgia (principal); M54.6 Pain in thoracic spine; M79.671 Pain in right foot
CPT/HCPCS: 72040; 72070

== ENCOUNTER 2025-02-10 20:30 | Emergency (ER) | payer MEDICARE, OTHER ==
[~2025-02-10] VITALS: Ht 172.7 cm; Wt 79.4 kg
[2025-02-10 21:12] VITALS: TEMP 98
[2025-02-10] MEDS: TRAMADOL HCL 50 MG TAB PO ONE (21:35)
[2025-02-11 00:37] LABS: LEUKOCYTE ESTERASE ,URINE NEGATIVE (NEGATIVE); PROTEIN,URINE DIPSTICK >=300 (NEGATIVE); URINE UROBILINOGEN 0.2 mg/dL (0.2 - 1)
[2025-02-11 00:50] LABS: EPITHELIAL CELLS,URINE FEW /LPF; HYALINE CASTS 0-1 (0-1); WBC,URINE (MAN) 0-5 /HPF (0-5)
[2025-02-11] MEDS ORDERED: DOXYCYCLINE HY100 MG PO (01:04)
[2025-02-11 01:35] VITALS: PULSE 65; RESP 20; O2SAT 100
== END 2025-02-11 01:36 | disposition home or self-care (01) ==
LOC: ER 21:18
DX: S00.83XA Contusion of other part of head, initial encounter (principal); M25.512 Pain in left shoulder; M25.511 Pain in right shoulder; M54.50 Low back pain, unspecified; W01.198A Fall on same level from slipping, tripping and stumbling with subsequent striking against other object, initial encounter; Y93.01 Activity, walking, marching and hiking; Y92.89 Other specified places as the place of occurrence of the external cause; Z85.818 Personal history of malignant neoplasm of other sites of lip, oral cavity, and pharynx; F17.210 Nicotine dependence, cigarettes, uncomplicated
CPT/HCPCS: 70450; 72125; 72131; 81001; 87086; 99283